=== PATIENT | male | born 1940 | race Caucasian/White ===

== ENCOUNTER 2017-01-19 08:33 | Observation (INO) | payer MEDICARE, OTHER ==
[2017-01-19] MEDS ORDERED: Sodium Chloride 0.9% 1,000 ML IV STA (08:35)
--- NOTE | 2017-01-19 09:05 | ED PDOC ---
Arrival/HPI - General Time Seen by Provider: 01/19/17 08:34 Historian: Patient - History of Present Illness Narrative History of Present Illness (Text): 01/19/17 08:35 A 76 year old male presents to the emergency department complaining of 1 day duration of generalized weakness and one episode of black stool. Patient states he takes Aspirin daily. He denies any chest pain, shortness of breath, abdominal pain, dizziness, lightheadedness or any other complaints at this time. Time/Duration: 24 hours Symptom Onset: Other Symptom Course: Unchanged Quality: Other Activities at Onset: Rest Context: Home Past Medical History - Provider Review Nursing Documentation Reviewed: Yes - Cardiac Hx Hypertension: Yes - Psychiatric Hx Depression: No Hx Emotional Abuse: No Hx Physical Abuse: No - Past Surgical History Past Surgical History: No Previous - Suicidal Assessment Feels Threatened In Home Enviroment: No Family/Social History - Physician Review Nursing Documentation Reviewed: Yes Family/Social History: Unknown Family HX Allergies/Home Meds Allergies/Adverse Reactions: Allergies No Known Allergies Allergy (Verified 02/18/14 05:19) Home Medications: Home Meds Medication Instructions Recorded Confirmed Aspirin [Aspirin] 81 mg PO DAILY 02/18/14 02/18/14 Losartan [Cozaar] 100 mg PO DAILY 02/18/14 02/18/14 Nebivolol Hydrochloride [Bystolic] 10 mg PO DAILY 02/18/14 02/18/14 Tamsulosin [Flomax] 0.4 mg PO DAILY 02/18/14 02/18/14 Physical Exam - Physical Exam Narrative Physical Exam (Text): - Review of Systems Constitutional: Generalized weakness. absent: Weight Change, Fevers Eyes: Normal ENT: Normal Respiratory: Normal absent: SOB, Cough, Sputum Cardiovascular: Normal absent: Chest pain, Palpitations, Syncope Gastrointestinal: 1 episode of melena. absent: Abdominal pain, Diarrhea, Nausea , Vomiting Genitourinary: Normal. absent: Dysuria, Frequency, Hematuria Musculoskeletal: Normal. absent: Arthralgias, Back Pain, Neck Pain Skin: Normal Neurological: Normal absent: Focal Weakness Endocrine: Normal Hemo/Lymphatic: Normal Psychiatric: Normal - Physical exam Patient appears age appropriate, speaking full sentences without difficulty - Systems Exam Head: Present: Atraumatic, Normocephalic Pupils: Present: PERRL Extraocular Muscles: Present: EOMI Conjunctiva: Present: Normal Mouth: Present: Moist Mucous Membranes Neck: Present: Normal Range of Motion. No: MIDLINE TENDERNESS, Paraspinal Tenderness Respiratory/Chest: Present: Clear to Auscultation, Good Air Exchange. No: Respiratory Distress, Accessory Muscle Use, Tachypneic Cardiovascular: Present: Regular Rate and Rhythm, Normal S1, S2, Peripheral Pulses Present. No: Murmurs Abdomen: Present: Normal Bowel Sounds, No: Tenderness, Peritoneal Signs, Rebound, Guarding, Distention Back: Present: Normal Inspection. No: Midline Tenderness, Paraspinal Tenderness Upper Extremity: Present: Normal Inspection. No: Cyanosis, Edema Lower Extremity: Present: Normal Inspection. No: Edema Neurological: Present: GCS=15, Speech Normal, cranial nerves II through XII fully intact with no cerebellar abnormality, neuro-sensory fully intact. No focal neurological deficits. Skin: Present: Warm, Dry, Normal Color. No: Rashes Lymphatic: Present: OX3, NI, NC Psychiatric: Present: Alert, Oriented x 3, Normal Insight, Normal Concentration Vital Signs Reviewed: Yes Vital Signs Temp Pulse Resp BP Pulse Ox 01/19/17 11:34 64 20 148/80 98 01/19/17 08:40 97.8 F 69 18 130/78 100 Temperature: Afebrile Blood Pressure: Normal Pulse: Regular Respiratory Rate: Normal Appearance: Positive for: Well-Appearing, Non-Toxic, Comfortable Pain Distress: None Mental Status: Positive for: Alert and Oriented X 3 Medical Decision Making ED Course and Treatment: 01/19/17 08:35 Impression: A 76 year old male with generalized weakness and a episode of melena. Differential Diagnosis include but are not limited to: anemia vs. peptic ulcer disease Plan: -- EKG -- Chest X-ray -- Labs -- Urinalysis -- Protonix and IV Fluids -- Reassess and disposition Progress Notes: EKG: Ordered, reviewed, and independently interpreted the EKG. Rate : 64 BPM Rhythm : NSR Interpretation : No ST-segment elevations, normal intervals. Interpreted by me. Case discussed with Dr. Weeks (GI), who came down to evaluate the patient. He states to admit the patient and he will take the patient for endoscopy later today. He states symptoms most likely from peptic ulcer disease. 01/19/17 09:45 Chest X-ray: Creator : Preston Navarrete MD IMPRESSION: No active disease. 01/19/17 10:28 Dr. Kothari paged per pt's request, awaiting callback Cre elevated, baseline 01/19/17 11:45 suzanne Kothari, agrees with obs under his service pt hemodynamically stable, aware of and agrees with plan - Lab Interpretations Lab Results: 01/19/17 09:00 01/19/17 09:40 Lab Results 01/19/17 11:04: Urine Color Yellow, Urine Appearance Clear, Urine pH 6.0, Ur Specific [place] 1.020, Urine Protein 100 H, Urine Glucose (UA) Negative, Urine Ketones Negative, Urine Blood Trace-lysed H, Urine Nitrate Negative, Urine Bilirubin Negative, Urine Urobilinogen 0.2, Ur Leukocyte Esterase Negative, Urine RBC Pending, Urine WBC Pending 01/19/17 09:40: Prostate Specific Ag 3.3 H 01/19/17 09:40: TIBC 271 01/19/17 09:40: Sodium 136, Potassium 4.7, Chloride 102, Carbon Dioxide 26, Anion Gap 13, BUN 31 H, Creatinine 2.1 H, Est GFR ( Amer) 37, Est GFR ( Non-Af Amer) 31, Random Glucose 108, Calcium 8.6, Ferritin Pending, Total Bilirubin 0.6, AST 27, ALT 35, Alkaline Phosphatase 65, Lactate Dehydrogenase 447, Total Creatine Kinase 142, Troponin I < 0.01, Total Protein 7.1, Albumin 3.6, Globulin 3.5, Albumin/Globulin Ratio 1.0 L, Lipase 177 01/19/17 09:00: PT 10.8, INR 1.00, APTT 25.9 01/19/17 09:00: WBC 6.4, RBC 4.54, Hgb 13.4 L, Hct 38.9 L, MCV 85.7, MCH 29.5, MCHC 34.4, RDW 13.5, Plt Count 251, MPV 10.1, Gran % 63.2, Lymph % (Auto) 24.2, [place] % (Auto) 8.2 H, Eos % (Auto) 4.1, Baso % (Auto) 0.3, Gran # 4.03, Lymph # 1.5, [place] # 0.5, Eos # 0.3, Baso # 0.02 01/19/17 09:00: Blood Type O POSITIVE, Antibody Screen Negative, Crossmatch See Detail, BBK History Checked No verified bt I have reviewed the lab results: Yes - RAD Interpretation Radiology Orders: 01/19/17 08:36 CHEST PORTABLE [RAD] Stat - Medication Orders Current Medication Orders: Sodium Chloride (Sodium Chloride 0.9%) 1,000 mls @ 100 mls/hr IV .Q10H MARANDA Stop: 01/23/17 15:29 Pantoprazole Sodium (Protonix Inj) 40 mg IVP Q12H MARANDA Stop: 01/23/17 23:31 Last Admin: 01/19/17 11:36 Dose: Discontinued Medications Sodium Chloride (Sodium Chloride 0.9%) 1,000 mls @ 1,000 mls/hr IV .Q1H STA Stop: 01/19/17 09:34 Last Admin: 01/19/17 09:00 Dose: 1,000 mls/hr Pantoprazole Sodium (Protonix Inj) 40 mg IVP STAT STA Stop: 01/19/17 08:36 Last Admin: 01/19/17 09:00 Dose: 40 mg - Scribe Statement The provider has reviewed the documentation as recorded by the Sonali Zuleta Provider Scribe Attestation: All medical record entries made by the Sonali were at my direction and personally dictated by me. I have reviewed the chart and agree that the record accurately reflects my personal performance of the history, physical exam, medical decision making, and the department course for this patient. I have also personally directed, reviewed, and agree with the discharge instructions and disposition. Disposition/Present on Arrival - Present on Arrival Any Indicators Present on Arrival: No History of DVT/PE: No History of Uncontrolled Diabetes: No Urinary Catheter: No History Surgical Site Infection Following: None - Disposition Have Diagnosis and Disposition been Completed?: Yes Diagnosis: Melena Disposition: HOSPITALIZED Disposition Time: 08:50 Patient Plan: Observation Condition: STABLE Referrals: Jaylon Kothari MD [Primary Care Provider] - Follow up with primary
[2017-01-19 09:12] LABS: ADD MANUAL DIFF? NO
[2017-01-19 09:22] LABS: BASO # 0.02 K/mm3 (0.0-2.0); BASO % 0.3 % (0.0-3.0); EOS # 0.3 (0.0-0.7); EOS % 4.1 % (1.5-5.0); GRAN # 4.03 (1.4-6.5); GRAN % 63.2 % (50.0-68.0); HEMATOCRIT 38.9 % (42.0-52.0); LYMPH # 1.5 (1.2-3.4); LYMPH % 24.2 % (22.0-35.0); MEAN CELL VOLUME 85.7 fL (80.0-105.0); MEAN CORPUSCULAR HEMOGLOBIN 29.5 pg (25.0-35.0); MEAN CORPUSCULAR HGB CONC 34.4 g/dl (31.0-37.0); MEAN PLATELET VOLUME 10.1 fl (7.0-11.0); MONO # 0.5 (0.1-0.6); MONO % 8.2 % (1.0-6.0); PLATELET COUNT 251 10^3/uL (120.0-450.0); RED CELL DISTRIBUTION WIDTH 13.5 % (11.5-14.5); WHITE BLOOD COUNT 6.4 10^3/ul (4.5-11.0)
[2017-01-19 09:33] LABS: PARTIAL THROMBOPLASTIN TIME 25.9 Seconds (23.7-30.8)
[2017-01-19 10:12] LABS: ALKALINE PHOSPHATASE 65 U/L (38-133); ALT/SGPT 35 U/L (7-56); AST/SGOT 27 U/L (15-59); BILIRUBIN,TOTAL 0.6 mg/dL (0.2-1.3); BLOOD UREA NITROGEN 31 mg/dL (7-21); CALCIUM 8.6 mg/dL (8.4-10.5); CARBON DIOXIDE 26 mmol/L (21-33); CHLORIDE 102 mmol/L (98-107); GFR AFRICAN-AMERICAN 37; GLUCOSE,RANDOM 108 mg/dL (70-110); LIPASE 177 U/L (23-300); POTASSIUM 4.7 mmol/L (3.6-5.0); SODIUM 136 mmol/L (132-148); TOTAL PROTEIN 7.1 g/dL (5.8-8.3)
--- NOTE | 2017-01-19 10:15 | RAD ---
HISTORY: cough COMPARISON: No prior. FINDINGS: LUNGS: No active pulmonary disease. PLEURA: No significant pleural effusion identified, no pneumothorax apparent. CARDIOVASCULAR: Normal. OSSEOUS STRUCTURES: No significant abnormalities. VISUALIZED UPPER ABDOMEN: Normal. OTHER FINDINGS: None. IMPRESSION: No active disease.
[2017-01-19 10:24] LABS: TROPONIN I < 0.01 ng/mL
[2017-01-19] MEDS ORDERED: Sodium Chloride 0.9% 1,000 ML IV SCH (11:30)
[2017-01-19 11:36] LABS: URINE BILIRUBIN NEGATIVE (NEGATIVE); URINE BLOOD TRACE-LYSED (NEGATIVE); URINE GLUCOSE (UA) NEGATIVE (NEGATIVE); URINE KETONE NEGATIVE (NEGATIVE); URINE LEUKOCYTE ESTERASE NEGATIVE Leu/uL (NEGATIVE); URINE PROTEIN 100 mg/dL (<30 mg/dL); URINE UROBILINOGEN 0.2 E.U./dL (<1 E.U./dL)
[2017-01-19 11:43] LABS: URINE APPEARANCE CLEAR (CLEAR); URINE COLOR YELLOW (YELLOW)
[2017-01-19 11:50] LABS: URINE AMORPHOUS SEDIMENT TRACE; URINE BACTERIA MANY (NEG); URINE EPITHELIAL CELLS 0 - 2 /hpf (0-5); URINE WBC 0 - 2 /hpf (0-6)
--- NOTE | 2017-01-19 12:53 | CT ---
PROCEDURE: CT Abdomen and Pelvis without Oral or IV contrast. HISTORY: Renal colic COMPARISON: CT abdomen and pelvis without contrast performed 05/07/16 TECHNIQUE: Contiguous axial images of the abdomen and pelvis. No oral or IV contrast administered. Coronal and Sagittal reformats generated. Radiation dose: Total exam DLP = 465.38 mGy-cm. This CT exam was performed using one or more of the following dose reduction techniques: Automated exposure control, adjustment of the mA and/or kV according to patient size, and/or use of iterative reconstruction technique. FINDINGS: There is limited evaluation of the solid organs without the administration of IV contrast. LOWER THORAX: No visible consolidation, pleural effusion, or pneumothorax. LIVER: Unremarkable unenhanced appearance. GALLBLADDER AND BILE DUCTS: Unremarkable unenhanced appearance. PANCREAS: Unremarkable unenhanced appearance. SPLEEN: 5 mm probable splenule. Otherwise unremarkable unenhanced appearance. ADRENALS: Unremarkable unenhanced appearance. KIDNEYS AND URETERS: No hydronephrosis or obstructing renal calculus. Bilateral low-density lesions compatible with cysts. Punctate left midpole renal calcification. BLADDER: The urinary bladder appears unremarkable. REPRODUCTIVE: Enlarged heterogeneous prostate gland measures approximately 4.7 x 5.1 cm. APPENDIX: The appendix appears within normal limits of caliber. No secondary signs of acute appendicitis. BOWEL: The stomach is nondistended. Lack of oral contrast limits evaluation for bowel pathology. Bowel containing right inguinal hernia without evidence of obstruction. Moderate constipation. PERITONEUM: No significant free fluid. No definite free air. LYMPH NODES: No bulky lymphadenopathy identified. VASCULATURE: Dense atherosclerotic calcifications of the aorta. No aortic aneurysm. BONES: No acute osseous abnormality is detected. OTHER FINDINGS: Fat containing left inguinal hernia. Bowel containing right inguinal hernia without evidence of obstruction. IMPRESSION: Bowel containing right inguinal hernia without evidence of obstruction. Fat containing left inguinal hernia. Moderate constipation. Enlarged heterogeneous prostate gland. Recommend correlation with PSA. No hydronephrosis or obstructing renal calculus. Bilateral low-density lesions compatible with cysts. Punctate left midpole renal calcification. Additional findings as above.
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
[2017-01-19 13:20] LABS: HEMATOCRIT 36.1 % (42.0-52.0)
[2017-01-19] MEDS ORDERED: Lactated Ringer's 1,000 ML IV SCH (14:17)
[2017-01-19] MEDS ORDERED: Propofol 10 mg/ml Inj (20 ML) ONE (14:23)
[2017-01-19] MEDS ORDERED: Midazolam 2 MG/2 ML VIAL ONE (14:24)
[2017-01-19 15:17] VITALS: BMI 24.0
[2017-01-19] MEDS ORDERED: Pneumococcal 23-Valent Vaccine IM ONE (15:17)
[2017-01-19] MEDS ORDERED: Peg-Electrolyte Oral Soln 4L (Golytely) PO ONE (17:00)
[2017-01-19 17:43] LABS: HEMATOCRIT 37.8 % (42.0-52.0)
[2017-01-19 17:50] LABS: IRON 69 ug/dL (45-180)
[2017-01-19] MEDS: POLYETHYLENE GLYCOL 3350 17 GM/Dose PACKET PO SCH (17:51)
[2017-01-19 17:59] LABS: FOLATE > 20.0 ng/mL
[2017-01-20 00:20] LABS: HEMATOCRIT 36.4 % (42.0-52.0)
--- NOTE | 2017-01-20 02:21 | CARD ---
APPROVED REPORT EKG Measurement Heart [id number] <Conclusion> Normal sinus rhythm Incomplete right bundle branch block Moderate voltage criteria for LVH, may be normal variant Borderline ECG
[2017-01-20] MEDS ORDERED: Metoprolol Succinate 50 mg XL Tab PO STA (05:43)
[2017-01-20 08:01] LABS: ADD MANUAL DIFF? NO
[2017-01-20 08:09] LABS: BASO # 0.03 K/mm3 (0.0-2.0); BASO % 0.4 % (0.0-3.0); EOS # 0.3 (0.0-0.7); EOS % 4.3 % (1.5-5.0); GRAN # 5.29 (1.4-6.5); HEMATOCRIT 37.8 % (42.0-52.0); LYMPH # 1.5 (1.2-3.4); MEAN CELL VOLUME 86.3 fL (80.0-105.0); MEAN CORPUSCULAR HEMOGLOBIN 29.5 pg (25.0-35.0); MEAN CORPUSCULAR HGB CONC 34.1 g/dl (31.0-37.0); MEAN PLATELET VOLUME 9.6 fl (7.0-11.0); MONO # 0.6 (0.1-0.6); MONO % 7.3 % (1.0-6.0); PLATELET COUNT 229 10^3/uL (120.0-450.0); RED CELL DISTRIBUTION WIDTH 13.6 % (11.5-14.5); WHITE BLOOD COUNT 7.7 10^3/ul (4.5-11.0)
--- NOTE | 2017-01-20 08:12 | CON ---
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 This morning, he felt a little weak and another episode of dark stool. There was concern about melena and GI bleeding. He presented to the Emergency Room. The patient also felt slightly weak. Never had a similar episode before. No history of bright red blood per rectum, no vomiting and no abdominal pain. PAST MEDICAL HISTORY: His other past medical history is significant for chronic kidney disease, history of enlarged prostate, renal stones in the past and dyslipidemia. SOCIAL HISTORY: He was an ex-smoker. Alcohol socially. REVIEW OF SYSTEMS: Positive as above. All other systems reviewed and negative. FAMILY HISTORY: Noncontributory. PHYSICAL EXAMINATION: GENERAL: The patient was seen and evaluated in the Emergency Room. He was lying on the bed, not in acute distress. VITAL SIGNS: Temperature is 97.8, blood pressure 130/78, pulse 69, respirations 18 and O2 saturation is 100% on room air. HEENT: Atraumatic. Anicteric. NECK: Supple. HEART: S1, S2 heard. LUNGS: Bilateral air entry present. ABDOMEN: Soft. There is no mass palpable. There is a slightly prominent cough impulse present in the right inguinal area. EXTREMITIES: No edema. No cyanosis. NEUROLOGIC: Alert and oriented. Moves all the extremities. RECTAL: Done. LABORATORY DATA: Hemoglobin 13.4, hematocrit 38.9, WBC is 6.4 and platelets 251. Chemistry: BUN 31 and creatinine 2.1. LFTs normal. PT and PTT are normal. 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 The patient, on physical exam unremarkable and rectal exam revealed melena. Hemodynamically stable. The patient gives a history of taking nonsteroidal anti-inflammatory drugs/aspirin 81 mg daily. The differential diagnosis for this melena should include peptic ulcer disease, erosive esophagitis, angiodysplasia, colonic lesion, especially right colon lesions, arteriovenous malformation and diverticulosis to be considered. 1. The patient would benefit from upper GI endoscopy to further evaluate. 2. Will start the patient on Protonix 40 mg q. 12 hourly. 3. Close followup of his hemoglobin and hematocrit. 4. Close followup of hemoglobin. Will continue to closely follow up his care and suggest further management based on the clinical course. The patient is scheduled for upper GI endoscopy today, late morning. Thank you very much for allowing us to participate in the care of the patient. Nelson Thomas MD cc: [id number] TT: 01/19/2017 21:08:41 Confirmation # [id number] Dictation # [id number] 01/20/2017 07:12:11 [facility]
--- NOTE | 2017-01-20 08:12 | CON ---
DATE: 01/19/2017 ADDENDUM This is an addendum to the GI consultation report dictated earlier. The patient did have an upper GI endoscopy, which showed gastric ulcerations in the antral area, clean based, multiple. This could be the etiology for an upper GI bleed. This could be because of melena, but, however, at the time of examination no active bleeding noticed. In view of the recent martínez it is reasonable to consider colonoscopy. I did discuss with the patient at length and with also physician. He agreed for the colonoscopy. The patient will be scheduled for the procedure in the a.m. The patient had a CT scan of the abdomen and pelvis done in the ER without contrast that was also reviewed. It showed a right inguinal hernia, renal cysts and enlarged prostate, otherwise unremarkable. Continue to closely follow up her care and suggest further management based on the clinical course. Nelson Thomas MD cc: [id number] TT: 01/19/2017 21:00:25 Confirmation # [id number] Dictation # [id number] KURT
[2017-01-20 08:21] LABS: ALB/GLOB RATIO 1.1 (1.1-1.8); BILIRUBIN,DIRECT 0.3 mg/dL (0.0-0.4); BILIRUBIN,TOTAL 0.8 mg/dL (0.2-1.3); CALCIUM 7.9 mg/dL (8.4-10.5); MAGNESIUM 1.6 mg/dL (1.7-2.2); TOTAL PROTEIN 6.7 g/dL (5.8-8.3)
[2017-01-20] MEDS ORDERED: Magnesium Sulfate 2 GM in Sodium Chloride 0.9% 100 ML IVPB ONE (08:37)
[2017-01-20] MEDS: POLYETHYLENE GLYCOL 3350 17 GM/Dose PACKET PO SCH (10:00)
[2017-01-20] MEDS ORDERED: Propofol 10 mg/ml Inj (20 ML) ONE (11:27)
[2017-01-20] MEDS ORDERED: Midazolam 2 MG/2 ML VIAL ONE (11:28)
[2017-01-20 12:03] VITALS: RESP 14; TEMP 98; O2SAT 96
[2017-01-20] MEDS ORDERED: Pneumococcal 23-Valent Vaccine IM ONE (14:15)
--- NOTE | 2017-01-20 14:29 | DS ---
The patient is seen in room 266, bed 1. Overnight nurse's notes were reviewed. The patient stated that he does not have any more rectal bleeding since admission. Denies chest pain, denies shortness of breath. The patient underwent EGD. Overnight, the patient's blood pressure was elevated for which patient received Cozaar and metoprolol by the house physician. The patient was seen by the nurses in the morning. The patient declined p.r.n. hydralazine for blood pressure and refused IV fluids. PHYSICAL EXAMINATION: VITAL SIGNS: T-max 97.5. Telemetry shows sinus rhythm, heart rate in 60s, 70s and 80s. Blood pressure 180/72, 172/72, checked by me manually 178/70, 162/68, 141/78, respirations 20, O2 sat 99%. Intake 1650, output not documented. HEAD: Normocephalic, atraumatic. HEENT: Shows pinkish, pale conjunctivae, anicteric sclerae. No oropharyngeal lesion. NECK: No neck rigidity. CHEST: Symmetrical. LUNGS: Shows no rales, crackles, or wheezing. CARDIOVASCULAR: S1, S2, regular rhythm. ABDOMEN: Soft, positive bowel sounds. No guarding, no rigidity, no rebound tenderness noted. GENITALIA: Male. RECTAL: Deferred. EXTREMITIES: Shows no pitting edema, no calf tenderness, no Los sign. NEUROLOGIC: There are no neurological deficits noted. The patient is alert, awake, oriented x 3. Cranial nerves II-XII grossly intact. VASCULAR: Palpable pulses. GAIT: Not tested. DIAGNOSTICS: 01/20, WBC 7.7, hemoglobin and hematocrit 12.9 and 37.8, platelet 229, granulocytes 69. Serial hemoglobin and hematocrit ranging between 12.4 and 36, 12.8 and 37.8, 12.5 and 36.1. Sodium 142, potassium 4.0, chloride 108, CO2 26, anion gap 12, BUN 23, creatinine 1.9, GFR 43, uric acid 5.3, calcium 7.9, magnesium 1.6. LFTs are normal. PSA 3.3. Vitamin D25 hydroxy 16.2. Ferritin is 192. Urinalysis noted. CAT scan of the abdomen and pelvis was noted. The patient underwent an endoscopy yesterday. FINAL IMPRESSION AND PLAN & DISCHARGE DIAGNOSES: 1. Gastrointestinal bleeding. 2. Acute blood loss anemia secondary to gastrointestinal bleeding and decreasing hemoglobin and hematocrit. 3. Walker grade B esophagitis with one or more of mucosal breaks greater than 5 mm, not extending between the tops of the 2 mucosal folds. 4. Superficial gastric ulcers and gastric antrum. 5. Duodenal bulb erythema and duodenitis. 6. Walker grade B esophagitis. 7. Hypertension. 8. Normocytic anemia secondary to gastrointestinal bleeding and blood loss anemia. 9. Acute kidney injury with underlying chronic kidney disease stage III. 10. Hypomagnesemia. 11. Elevated PSA of 3.3. 12. Hypovitaminosis D. 13. Proteinuria, hypertension, microscopic hematuria and bacteriuria. 14. Bilateral renal cysts. 15. Left renal pole calcification. 16. Prostatomegaly 4.7 cm x 5.1 cm. 17. Right inguinal hernia. 18. Constipation. 19. Fat containing left inguinal hernia and bowel containing right inguinal hernia without obstruction. 20. Bilateral renal cysts. 21. Left axis deviation. 22. Incomplete right bundle branch block versus right ventricular conduction delay. 23. Status post melena. 24. History of nonsteroidal and aspirin use. 25. Acute gastrointestinal bleeding with bright red blood per rectum and melena. 26. History of hypertension. 27. Prostatic hypertrophy. 28. History of hypertension. 29. History of nephrolithiasis. 30. History of hydronephrosis. 31. History of renal cyst. 32. History of prostatic hypertrophy and prostatomegaly. 33. Status post Colonscopy. 34. Hyperplastic rectal polyp, status post polypectomy. 1. Acute gastrointestinal bleeding with bright red blood per rectum and melena. 2. Questionable upper versus lower gastrointestinal bleeding. 3. Acute blood loss anemia secondary to gastrointestinal bleeding. 4. Acute kidney injury versus underlying chronic kidney disease, stage III/IV. 5. History of hypertension. 6. History of prostate hypertrophy. 7. History of nephrolithiasis. 8. History of hydronephrosis. 9. History of bilateral renal cysts. 10. History of hypertension. 11. Mild normocytic anemia. Prostatitic hypertrophy and prostatomegaly with elevated PSA. 12. Proteinuria and microscopic hematuria and bacteriuria. 13. Left axis deviation with incomplete right bundle branch block and hypertensive cardiovascular disease. 14. SESSILE RECTAL POLYP, STATUS POST POLYPECTOMY. PLAN: At this time, the patient is awaiting colonoscopy. The patient has persistently requested to be discharged after colonoscopy no matter what the results are. The patient's IV fluid was stopped because of his request. CURRENT MEDICATIONS: Hydralazine 5 mg IV q. 6 p.r.n. The patient is on Flomax 0.4 daily. The patient received GoLYTELY prep. The patient was given magnesium sulfate rider, MiraLax 17 g twice a day, Protonix 40 IV q. 12. The patient is on liquid diet. The patient at present has been ordered stool occult blood. At present, patient will be considered for discharge today if cleared by gastroenterology. The patient will be considered for discharge if cleared by gastroenterology. The patient may be required to hold the aspirin as per gastroenterology recommendation. If patient is cleared for discharge, patient will resume aspirin as per GI discretion. The patient will resume his Nexium 40 mg daily, Cozaar 100 mg daily , MiraLax 17 g twice a day, Crestor 10 mg daily, Flomax 0.4 mg daily. Time spent in the entire discharge process is more than 45 minutes. The patient is awaiting colonoscopy and colonoscopy results, but patient does not want to wait in the hospital for the results no matter what the colonoscopy results show and will follow up with gastroenterology as an outpatient. Dictated and electronically signed, not read. Jaylon Kothari MD cc: [id number] TT: 01/20/2017 14:29:30 denice HICKS
[2017-01-20 14:59] VITALS: PULSE 68
[2017-01-20 15:00] VITALS: BP 140/70
== END 2017-01-20 15:16 | disposition home or self-care (01) ==
LOC: ED 08:33 → ERH 12:01 → 2RNO 13:20
PROVIDERS: ADMIT Internal Medicine; ATTEND Internal Medicine
DX: D50.0 Iron deficiency anemia secondary to blood loss (chronic) (principal); D62 Acute posthemorrhagic anemia; K92.2 Gastrointestinal hemorrhage, unspecified; K20.8 Other esophagitis; K25.9 Gastric ulcer, unspecified as acute or chronic, without hemorrhage or perforation; K29.80 Duodenitis without bleeding; N17.9 Acute kidney failure, unspecified; N18.3 Chronic kidney disease, stage 3 (moderate); E83.42 Hypomagnesemia; E55.9 Vitamin D deficiency, unspecified; N28.1 Cyst of kidney, acquired; N40.0 Benign prostatic hyperplasia without lower urinary tract symptoms; K40.90 Unilateral inguinal hernia, without obstruction or gangrene, not specified as recurrent; K59.00 Constipation, unspecified; I45.10 Unspecified right bundle-branch block; E78.5 Hyperlipidemia, unspecified; I13.10 Hypertensive heart and chronic kidney disease without heart failure, with stage 1 through stage 4 chronic kidney disease, or unspecified chronic kidney disease; R31.29 Other microscopic hematuria; Z79.82 Long term (current) use of aspirin; Z79.899 Other long term (current) drug therapy; M19.90 Unspecified osteoarthritis, unspecified site; K64.8 Other hemorrhoids; K62.1 Rectal polyp; Z23 Encounter for immunization
CPT/HCPCS: 36415; 43239; 45385; 71010; 74176; 80053; 81001; 82248; 82306; 82550; 82607; 82668; 82728; 82746; 83540; 83550; 83615; 83690; 83735; 84153; 84484; 84550; 85014; 85018; 85025; 85610; 85730; 86850; 86900; 86920; 88305; 88342; 90732; 93005; 96361; 96365; 96375; 96376; 99285; C9113; G0009; G0378; J2001; J2250; J2704; J3010; J3475; J7040

== ENCOUNTER 2018-12-20 15:14 | Outpatient (CLI) | payer MEDICARE, OTHER | END 2018-12-20 15:15 | disposition home or self-care (01) | LOC: RAD 15:14 ==

== ENCOUNTER 2018-12-27 10:57 | Outpatient (CLI) | payer MEDICARE, OTHER | END 2018-12-27 10:58 | disposition home or self-care (01) | LOC: CARDIO 10:57 ==